=== PATIENT | male | born 1955 | race Caucasian/White ===

== ENCOUNTER 2023-07-17 18:44 | Emergency (ER) | payer MEDICARE ==
--- NOTE | 2023-07-17 18:58 | ERPHSYRPT ---
- History of Present Illness Time Seen by Provider: 07/17/23 18:58 Source: patient Exam Limitations: no limitations Physician History: This is a 68-year-old white male patient of Dr. Arce who presents to the emergency department approximately 2 hours after his left forearm was "pinched by a trailer" causing a skin tear on the dorsal aspect of his left forearm. Patient's tetanus status is not up-to-date. Timing/Duration: today Quality: painful Severity: mild Location: extremities (Oral aspect left forearm) Associated Symptoms: denies symptoms Allergies/Adverse Reactions: No Known Drug Allergies Allergy (Verified 07/17/23 19:01) Home Medications: Celecoxib 100 mg [celeBREX 100 MG] 100 mg PO DAILY 07/17/23 [History] Lisinopril/Hydrochlorothiazide [Lisinopril-Hctz 20-25 mg Tab] 1 each PO DAILY 07/17/23 [History] atenoloL [Atenolol] 25 mg PO DAILY 07/17/23 [History] Travel Risk - International Travel Have you traveled outside of the country in past 3 weeks: No - Emerging Infectious Disease Are you exhibiting symptoms associated with any current EIDs: No - Review of Systems Constitutional: No Symptoms Eyes: No Symptoms Ears, Nose, & Throat: No Symptoms Respiratory: No Symptoms Cardiac: No Symptoms Abdominal/Gastrointestinal: No Symptoms Genitourinary Symptoms: No Symptoms Musculoskeletal: No Symptoms Skin: Other (Skin tear left forearm) Neurological: No Symptoms Psychological: No Symptoms Endocrine: No Symptoms Hematologic/Lymphatic: No Symptoms Immunological/Allergic: No Symptoms All Other Systems: Reviewed and Negative - Past Medical History Pertinent Past Medical History: Yes - Nursing Vital Signs Nursing Vital Signs: Initial Vital Signs Temperature 97.5 F 07/17/23 18:54 Pulse Rate 94 H 07/17/23 18:54 Respiratory Rate 20 07/17/23 18:54 Blood Pressure 134/64 07/17/23 18:54 O2 Sat by Pulse Oximetry 97 07/17/23 18:54 Pain Scale Pain Intensity 4 - Physical Exam General Appearance: no apparent distress, alert Eye Exam: PERRL/EOMI, eyes nml inspection Ears, Nose, Throat Exam: normal ENT inspection, moist mucous membranes Neck Exam: normal inspection, non-tender, supple, full range of motion Respiratory Exam: airway intact, No chest tenderness, No respiratory distress Gastrointestinal/Abdomen Exam: No tenderness Rectal Exam: not done Back Exam: normal inspection, normal range of motion, No CVA tenderness, No vertebral tenderness Extremity Exam: normal range of motion, pelvis stable, tenderness (Mild tenderness in the area of skin tear dorsal aspect left forearm) Neurologic Exam: alert, oriented x 3, cooperative, manager protein II-XII nml as tested, normal mood/affect, nml cerebellar function, nml station & gait, sensation nml Skin Exam: other (Dorsal aspect left forearm skin tear) Lymphatic Exam: No adenopathy SpO2 Interpretation: normal O2 Delivery: Room Air - Course Nursing assessment & vital signs reviewed: Yes Ordered Tests: Medication Summary Discontinued Medications Generic Name Dose Route Start Last Admin Trade Name Freq PRN Reason Stop Dose Admin Diphtheria/Tetanus/Acell Pertussis 0.5 ml 07/17/23 19:52 07/17/23 20:04 Tdap --Diph,Pertuss(Acell),Tet Vac/Pf 0.5 Ml Vial IM 07/17/23 19:53 0.5 ml .ONCE ONE Administration Diphtheria/Tetanus/Acell Pertussis Confirm 07/17/23 20:00 Tdap --Diph,Pertuss(Acell),Tet Vac/Pf 0.5 Ml Vial Administered 07/17/23 20:01 Dose 0.5 ml IM .[facility] - Progress Progress: improved Progress Note: 07/17/23 20:57 My decision making and assignment of low complexity of this patient's medical problems today is based on review the patient's past medical history, review of patient's medication list, review of patient drug allergy list, history presence and physical findings on examination. No laboratory radiographic studies are necessary in the workup of this patient. Procedure note: The area of the skin tear on the dorsal aspect of the left forearm was cleansed with Hibiclens solution. After the area was blotted and dried, the skin from the skin tear was unraveled and stretched across the underlying epidermis that was exposed. It covered approxi-90% of this site. Skin tach topical solution was placed around the site and the skin edges were tacked down with Steri-Strips. Tegaderm covered the site followed by pressure dressing. There were no complications and the patient Toller procedure well. Timeout of the procedure was performed at 2030 Counseled pt/family regarding: diagnosis Medical Desision Making - Diagnostic Testing Diagnostic test were ordered, analyzed, and reviewed by me: No - Risk of complications Minimal Risk: Minimal risk of morbidity - Departure Departure Disposition: Home Clinical Impression: Skin tear of left forearm without complication Condition: Stable Critical Care Time: No Referrals: AG ARCE MD [Primary Care Provider] - Follow up/PCP as directed Instructions: Wound Care (DC) Additional Instructions: Keep the current dressing in place until 9 PM on 07/18/2023. At that time you may remove the top dressing and leave the underlying dressing and Steri-Strips in place. May allow the soap and water to flow over this site. Blot dry use a chairman. Leave the Steri-Strips in place until they fall off on their own. Call your primary care doctor tomorrow, 07/18/2023 to make arrangements for follow-up appointment for further evaluation and management in the next 5 to 7 days.
[2023-07-17 19:01] VITALS: TEMP 97.5
[2023-07-17] MEDS ORDERED: Adacel Vial IM ONE (20:00)
[2023-07-17] MEDS: Adacel Vial IM ONE (20:04)
[2023-07-17 20:49] VITALS: O2SAT 99
[2023-07-17 21:03] VITALS: BP 147/65; PULSE 87; RESP 20
== END 2023-07-17 21:10 | disposition home or self-care (01) ==
LOC: ED 18:44
DX: S51.812A Laceration without foreign body of left forearm, initial encounter (principal); W23.0XXA Caught, crushed, jammed, or pinched between moving objects, initial encounter; Z79.899 Other long term (current) drug therapy; Z23 Encounter for immunization
CPT/HCPCS: 90471; 90715; 99283